=== PATIENT | male | born 1970 | race Hispanic/Latino ===

== ENCOUNTER → 2020-03-20 | Outpatient (CLI) | payer OTHER | END | disposition home or self-care (01) | LOC: OIH 10:17 | PROVIDERS: ATTEND Internal Medicine Cardiovascular Disease | DX: Z13.6 Encounter for screening for cardiovascular disorders (principal) | CPT/HCPCS: 75571 ==

== ENCOUNTER → 2020-04-27 | Outpatient (CLI) | payer BC | END | disposition home or self-care (01) | LOC: SHCH 09:53 | PROVIDERS: ATTEND Internal Medicine Cardiovascular Disease | DX: I10 Essential (primary) hypertension (principal) ==

== ENCOUNTER → 2023-02-21 | Outpatient (CLI) | payer OTHER | END | disposition home or self-care (01) | LOC: RAH 12:24 | PROVIDERS: ATTEND Internal Medicine Cardiovascular Disease | DX: Z13.6 Encounter for screening for cardiovascular disorders (principal); R93.1 Abnormal findings on diagnostic imaging of heart and coronary circulation | CPT/HCPCS: 75571 ==

== ENCOUNTER → 2023-02-26 | Outpatient (CLI) | payer BC | END | disposition home or self-care (01) | LOC: SHCH 13:57 | PROVIDERS: ATTEND Internal Medicine Cardiovascular Disease | DX: I10 Essential (primary) hypertension (principal); R09.89 Other specified symptoms and signs involving the circulatory and respiratory systems; E11.9 Type 2 diabetes mellitus without complications; E78.5 Hyperlipidemia, unspecified | CPT/HCPCS: 93306 ==

== ENCOUNTER → 2023-03-11 | Outpatient (CLI) | payer BC | END | disposition home or self-care (01) | LOC: SHCH 13:53 | PROVIDERS: ATTEND Internal Medicine Cardiovascular Disease | DX: I65.23 Occlusion and stenosis of bilateral carotid arteries (principal); I10 Essential (primary) hypertension; R09.89 Other specified symptoms and signs involving the circulatory and respiratory systems | CPT/HCPCS: 93880 ==

== ENCOUNTER → 2023-05-27 | Outpatient (CLI) | payer BC ==
[2023-05-27 13:03] LABS: ALBUMIN 3.8 g/dL (3.5-5.0); CREATININE 1.1 mg/dL (0.5-1.5); POTASSIUM 3.8 mmol/L (3.5-5.1); TOTAL PROTEIN, SERUM 7.5 g/dL (6.0-8.3)
== END | disposition home or self-care (01) ==
LOC: LAB 08:07
PROVIDERS: ATTEND Internal Medicine Cardiovascular Disease
DX: I10 Essential (primary) hypertension (principal)
CPT/HCPCS: 36415; 80053

== ENCOUNTER → 2023-05-30 | Outpatient (CLI) | payer BC ==
[~2023-05-30] MED LIST: IOHEXOL 350 MG/ML 100ML INFUS..BTL IV ONE; METOPROLOL TARTRATE 1 MG/ML 5ML VIAL IV ONE
== END | disposition home or self-care (01) ==
LOC: RAH 08:42
PROVIDERS: ATTEND Internal Medicine Cardiovascular Disease
DX: R07.89 Other chest pain (principal)
CPT/HCPCS: 75574; J3490; Q9967

== ENCOUNTER 2023-07-18 06:30 | Day surgery (SDC) | payer BC ==
[2023-07-16 11:30] LABS: BASOPHILS # (AUTO) 0.07 K/uL (0.00-0.20); BASOPHILS % (AUTO) 0.9 % (0.0-5.0); EOSINOPHILS # (AUTO) 0.64 K/uL (0.00-0.70); EOSINOPHILS % (AUTO) 8.2 % (0.0-8.0); HEMATOCRIT 45.1 % (42-54); IMMATURE GRANULOCYTE ABSOLUTE 0.01 K/uL (0-1); LYMPHOCYTES # (AUTO) 2.1 K/uL (1.0-4.8); LYMPHOCYTES % (AUTO) 26.2 % (21.0-51.0); MEAN CORPUSCULAR HEMOGLOBIN 30.8 pg (27.0-33.0); MEAN CORPUSCULAR HGB CONC 33.9 g/dL (32.0-36.0); MEAN CORPUSCULAR VOLUME 90.9 fL (79-99); MONOCYTES # (AUTO) 0.6 K/uL (0.1-1.0); NEUTROPHILS # (AUTO) 4.4 K/uL (1.8-7.7); NEUTROPHILS % (AUTO) 56.6 % (40.0-77.0); PLATELET COUNT (AUTO) 233 K/uL (130-400); RED BLOOD CELL COUNT(AUTO) 4.96 MIL/uL (4.50-6.20); RED CELL DISTRIBUTION WIDTH 12.5 % (11.0-15.5); WHITE BLOOD COUNT (AUTO) 7.9 K/uL (4.8-10.8)
[2023-07-16 11:35] LABS: POTASSIUM 4.4 mmol/L (3.5-5.1)
[2023-07-16 11:40] VITALS: BP 146/80; PULSE 78; RESP 18
[2023-07-16 11:48] LABS: INR 0.94 (0.85-1.15); PROTHROMBIN TIME 10.9 SEC (9.6-11.6)
[2023-07-16 11:54] LABS: APPEARANCE,URINE CLEAR (CLEAR); BILIRUBIN,URINE NEGATIVE (NEGATIVE); COLOR,URINE LIGHT-YELLOW (YELLOW); GLUCOSE, URINE (UA) >=1000 mg/dL (NEGATIVE); KETONES,URINE 5 mg/dL (NEGATIVE); LEUKOCYTE ESTERASE ,URINE 250 Leu/uL (NEGATIVE); NITRATE,URINE NEGATIVE (NEGATIVE); OCCULT BLOOD,URINE NEGATIVE (NEGATIVE); PROTEIN,URINE NEGATIVE (NEGATIVE); UROBILINOGEN,URINE 0.2 mg/dL (0.2-1.0)
[2023-07-16 11:57] LABS: ADD UA MICROSCOPIC YES
[2023-07-16 12:04] LABS: BACTERIA,URINE RARE /HPF (None Seen); MUCUS,URINE RARE LPF (None Seen); SQUAMOUS EPITHELIAL CELL,UR FEW /HPF (0-2)
[~2023-07-18] VITALS: Ht 177.8 cm; Wt 86.5 kg
[2023-07-18] VITALS (12 sets, daily range): BP systolic 100–119; BP diastolic 62–77; PULSE 72–88; RESP 12–24
[~2023-07-18 06:30] MED LIST changes: +DAPA10TA PO; +FENO160T16 PO; +FISH1CAP27 PO; +INSLAN SQ; -IOHEXOL 350 MG/ML 100ML INFUS..BTL IV ONE; +METF-446 PO; +METO-408 PO; -METOPROLOL TARTRATE 1 MG/ML 5ML VIAL IV ONE; +ROSU40TA21 PO; +SEMA1PEN3 SQ; +VALS160T29 PO
[2023-07-18] MEDS ORDERED: 0.9%NACL 1000ML 1,000 ML IV ONE (07:35)
[2023-07-18] MEDS ORDERED: AEC81 PO (08:05)
[2023-07-18] MEDS ORDERED: HEPARIN 10,000 UNIT/10ML (1,000 UNIT/ML) VIAL ONE (11:36)
[2023-07-18] MEDS ORDERED: NITROGLYCERIN 50MG VIAL ONE (11:36)
[2023-07-18] MEDS ORDERED: SODIUM BICARB 50MEQ 50ML VIAL 50 ML ONE (11:36)
[2023-07-18] MEDS ORDERED: IOHEXOL 350 MG/ML 100ML INFUS..BTL IV ONE (11:36)
[2023-07-18] MEDS ORDERED: LIDOCAINE HCL 400MG/20ML VIAL ONE (11:36)
[2023-07-18] MEDS ORDERED: NICARDIPINE 25MG INJ IV ONE (11:37)
[2023-07-18] MEDS ORDERED: MEPERIDINE-PF 25 MG/ML SYG ONE ×4 (12:10→12:49)
[2023-07-18] MEDS ORDERED: MIDAZOLAM HCL 1 MG/ML 2ML VIAL ONE ×4 (12:10→12:49)
[2023-07-18] MEDS ORDERED: 0.9%NACL 1000ML 1,000 ML IV SCH (13:30)
[2023-07-18] MEDS ORDERED: DEXTROSE 50%-WATER 50 ML DISP.SYRIN IV PRN (13:30)
[2023-07-18] MEDS ORDERED: GLUCAGON 1MG KIT 1 MG ML IM PRN (13:30)
[2023-07-18] MEDS ORDERED: INSULIN HUMULIN R 100 UNIT/ML 3ML SQ SCH (16:30)
== END 2023-07-18 18:05 | disposition home or self-care (01) ==
LOC: DAH 06:30
PROVIDERS: ATTEND Internal Medicine Cardiovascular Disease
DX: I25.119 Atherosclerotic heart disease of native coronary artery with unspecified angina pectoris (principal); I10 Essential (primary) hypertension; E11.9 Type 2 diabetes mellitus without complications; E78.5 Hyperlipidemia, unspecified; Z79.01 Long term (current) use of anticoagulants; Z79.899 Other long term (current) drug therapy; Z79.82 Long term (current) use of aspirin; Z79.4 Long term (current) use of insulin; Z98.890 Other specified postprocedural states; Z82.49 Family history of ischemic heart disease and other diseases of the circulatory system
CPT/HCPCS: 80048; 83880; 85025; 85610; 85730; 87088; 81001; 36415; 71045; 93005; 93458; 82948 ×2; C1769; C1894 ×2; A4649; J3490 ×4; J7030; J1644 ×2; J2250 ×3; J2175 ×3; Q9967; A4215; A4222; A4221; A4663; A4216; A4606; Q9965; A4223 ×3; 99156; 99157

== ENCOUNTER → 2023-08-18 | Outpatient (CLI) | payer BC ==
[~2023-08-18] MED LIST changes: +AEC81 PO; +FURO20TA6 PO; +GABA300C PO; -METO-408 PO; +METO25 PO; -VALS160T29 PO
[2023-08-18 12:23] LABS: BASOPHILS # (AUTO) 0.07 K/uL (0.00-0.20); BASOPHILS % (AUTO) 0.6 % (0.0-5.0); EOSINOPHILS # (AUTO) 0.52 K/uL (0.00-0.70); EOSINOPHILS % (AUTO) 4.7 % (0.0-8.0); HEMATOCRIT 36.3 % (42-54); IMMATURE GRANULOCYTE ABSOLUTE 0.05 K/uL (0-1); LYMPHOCYTES # (AUTO) 2.1 K/uL (1.0-4.8); LYMPHOCYTES % (AUTO) 18.8 % (21.0-51.0); MEAN CORPUSCULAR HEMOGLOBIN 30.7 pg (27.0-33.0); MEAN CORPUSCULAR HGB CONC 32.8 g/dL (32.0-36.0); MEAN CORPUSCULAR VOLUME 93.8 fL (79-99); MONOCYTES # (AUTO) 0.9 K/uL (0.1-1.0); NEUTROPHILS # (AUTO) 7.5 K/uL (1.8-7.7); NEUTROPHILS % (AUTO) 67.5 % (40.0-77.0); PLATELET COUNT (AUTO) 442 K/uL (130-400); RED BLOOD CELL COUNT(AUTO) 3.87 MIL/uL (4.50-6.20); RED CELL DISTRIBUTION WIDTH 13.5 % (11.0-15.5); WHITE BLOOD COUNT (AUTO) 11.1 K/uL (4.8-10.8)
[2023-08-18 12:42] LABS: ALBUMIN 3.2 g/dL (3.5-5.0); BILIRUBIN,TOTAL 0.4 mg/dL (0.2-1.0); CREATININE 1.2 mg/dL (0.5-1.5); POTASSIUM 4.4 mmol/L (3.5-5.1)
== END | disposition home or self-care (01) ==
LOC: LAB 09:37
PROVIDERS: ATTEND Internal Medicine Cardiovascular Disease
DX: I10 Essential (primary) hypertension (principal)
CPT/HCPCS: 36415; 80053; 85025

== ENCOUNTER 2023-09-08 14:00 | Observation (INO) | payer BC ==
[~2023-09-08] VITALS: Ht 177.8 cm; Wt 82.8 kg
[2023-09-08 11:29] LABS: BASOPHILS # (AUTO) 0.07 K/uL (0.00-0.20); BASOPHILS % (AUTO) 0.8 % (0.0-5.0); EOSINOPHILS # (AUTO) 0.52 K/uL (0.00-0.70); EOSINOPHILS % (AUTO) 5.9 % (0.0-8.0); HEMATOCRIT 42.9 % (42-54); IMMATURE GRANULOCYTE ABSOLUTE 0.01 K/uL (0-1); LYMPHOCYTES # (AUTO) 2.2 K/uL (1.0-4.8); LYMPHOCYTES % (AUTO) 25.2 % (21.0-51.0); MEAN CORPUSCULAR HEMOGLOBIN 29.4 pg (27.0-33.0); MEAN CORPUSCULAR HGB CONC 32.6 g/dL (32.0-36.0); MEAN CORPUSCULAR VOLUME 89.9 fL (79-99); MONOCYTES # (AUTO) 0.6 K/uL (0.1-1.0); MONOCYTES % (AUTO) 7.2 % (3.0-13.0); NEUTROPHILS # (AUTO) 5.4 K/uL (1.8-7.7); NEUTROPHILS % (AUTO) 60.8 % (40.0-77.0); PLATELET COUNT (AUTO) 277 K/uL (130-400); RED BLOOD CELL COUNT(AUTO) 4.77 MIL/uL (4.50-6.20); RED CELL DISTRIBUTION WIDTH 12.7 % (11.0-15.5); WHITE BLOOD COUNT (AUTO) 8.9 K/uL (4.8-10.8)
[2023-09-08 11:39] LABS: CREATININE 1.2 mg/dL (0.5-1.5); POTASSIUM 4.1 mmol/L (3.5-5.1)
[~2023-09-08 14:00] MED LIST changes: +FURO-152 PO; -GABA300C PO
[2023-09-10 17:29] VITALS: BP 118/61; PULSE 84; RESP 18
[2023-09-11] VITALS (27 sets, daily range): BP systolic 103–135; BP diastolic 61–83; PULSE 73–103; RESP 15–18; O2SAT 98–99
[2023-09-11] MEDS ORDERED: CEFAZOLIN SODIUM 2 GM VIAL ONE (06:20)
[2023-09-11] MEDS ORDERED: 0.9%NACL 1000ML 1,000 ML IV ONE (06:20)
[2023-09-11] MEDS ORDERED: LIDOCAINE 2%-EPI PF 30 ML+BUPIVACAINE/PF 0.25% 30ML /60ML SYR IJ SCH ×2 (06:30)
[2023-09-11] MEDS ORDERED: FAMOTIDINE 20MG VIAL IV ONE (07:00)
[2023-09-11] MEDS ORDERED: PROPOFOL 1000 MG/100 ML 100 ML IV ONE (07:09)
[2023-09-11] MEDS ORDERED: DEXAMETHASONE SOD PHOSPHATE 4 MG/ML 1ML VIAL ONE (07:10)
[2023-09-11] MEDS ORDERED: CEFAZOLIN SODIUM 1 GM VIAL ONE (07:13)
[2023-09-11] MEDS ORDERED: THROMBIN-JMI 20000 UNIT KIT TP ONE (07:14)
[2023-09-11] MEDS ORDERED: MORPHINE PF 100MG/10ML AMP IV ONE (07:14)
[2023-09-11] MEDS ORDERED: CEFAZOLIN SODIUM 1 GM VIAL IRRIG ONE (08:11)
[2023-09-11] MEDS ORDERED: CEFAZOLIN SODIUM 2 GM VIAL IVPB ONE (08:11)
[2023-09-11] MEDS ORDERED: THROMBIN 20000 UNITS/VIAL POWDER TP ONE (08:11)
[2023-09-11] MEDS ORDERED: MORPHINE 10MG VIAL IM ONE (08:11)
[2023-09-11] MEDS ORDERED: ROCURONIUM 10MG/1ML SYR 10 MG/ML ML IV ONE (10:04)
[2023-09-11] MEDS ORDERED: NEOSTIGMINE 5MG/5ML SYR IV ONE (10:04)
[2023-09-11] MEDS ORDERED: PROPOFOL 10 MG/ML 20ML VIAL IV ONE (10:04)
[2023-09-11] MEDS ORDERED: SUCCINYLCHOLINE CHLORIDE 20 MG/ML 10 ML VIAL IVP ONE (10:04)
[2023-09-11] MEDS ORDERED: PHENYLEPHRINE HCL 10 MG/ML 1ML VIAL IV ONE (10:04)
[2023-09-11] MEDS ORDERED: LIDOCAINE PF 100MG/5ML (2%) SYRINGE 5ML IVP ONE (10:04)
[2023-09-11] MEDS ORDERED: MIDAZOLAM HCL 1 MG/ML 2ML VIAL IVPB ONE (10:04)
[2023-09-11] MEDS ORDERED: FENTANYL CITRATE PF 50 MCG/1 ML 2ML VIAL IJ ONE (10:04)
[2023-09-11] MEDS ORDERED: ESMOLOL HCL 10 MG/ML 10 ML VIAL IVP ONE (10:04)
[2023-09-11] MEDS ORDERED: GLYCOPYRROLATE 1 MG/5 ML SYRINGE IV ONE (10:04)
[2023-09-11] MEDS ORDERED: ONDANSETRON 4MG INJ IVP ONE (10:04)
[2023-09-11] MEDS ORDERED: 0.9%NACL 10ML VIAL IVP PRN (11:00)
[2023-09-11] MEDS ORDERED: MORPHINE 2 MG SYG IVP PRN (11:00)
[2023-09-11] MEDS ORDERED: PROMETHAZINE HCL 25 MG/ML 1ML AMPULE IM PRN (11:00)
[2023-09-11] MEDS ORDERED: CEFAZOLIN SODIUM 1 GM VIAL IVPB SCH (11:00)
[2023-09-11] MEDS ORDERED: HYDROCODONE/ACETAMINOPHEN 5/325 MG TAB PO PRN (11:00)
[2023-09-11] MEDS: DEXAMETHASONE SOD PHOSPHATE 4 MG/ML 1ML VIAL IVP SCH ×2 (12:23→17:03)
[2023-09-11] MEDS: LACTATED RINGERS 1000ML 1,000 ML IV SCH (12:23)
[2023-09-11] MEDS ORDERED: CEFAZOLIN SODIUM 1 GM VIAL IVPB ONE (15:45)
[2023-09-11] MEDS: INSULIN HUMULIN R 100 UNIT/ML 3ML SQ SCH ×2 (17:01→21:38)
[2023-09-11] MEDS: METFORMIN HCL 500 MG TABLET PO SCH (17:03)
[2023-09-11] MEDS ORDERED: NON-FORMULARY MEDICATION 1 EACH (Metformin HCl 1,000 MG) PO SCH (21:00)
[2023-09-11] MEDS ORDERED: FENOFIBRATE NANOCRYSTALLIZED 145 MG TAB PO SCH (21:00)
[2023-09-11] MEDS: METOPROLOL TARTRATE 25 MG TAB PO SCH (21:36)
[2023-09-12] VITALS: BP 116/70; PULSE 87; RESP 17
[2023-09-12] MEDS: DEXAMETHASONE SOD PHOSPHATE 4 MG/ML 1ML VIAL IVP SCH ×2 (02:12→05:56)
[2023-09-12] MEDS: LACTATED RINGERS 1000ML 1,000 ML IV SCH (02:14)
[2023-09-12 04:00] VITALS: BP 116/67; PULSE 82; RESP 17
[2023-09-12] MEDS: INSULIN HUMULIN R 100 UNIT/ML 3ML SQ SCH (06:10)
[2023-09-12 08:00] VITALS: BP 129/74; PULSE 84; RESP 16; O2SAT 99
[2023-09-12] MEDS: METOPROLOL TARTRATE 25 MG TAB PO SCH (08:32)
[2023-09-12] MEDS: METFORMIN HCL 500 MG TABLET PO SCH (08:32)
[2023-09-12] MEDS ORDERED: NON-FORMULARY MEDICATION 1 EACH (Fenofibrate 160 MG) PO SCH (09:00)
[2023-09-12] MEDS ORDERED: INSULIN GLARGINE 100 UNITS/ML 10 ML VIAL SQ SCH (09:00)
[2023-09-12] MEDS ORDERED: Dapagliflozin Propanediol (Farxiga) 10 MG PO SCH (09:00)
[2023-09-12] MEDS ORDERED: Rosuvastatin Calcium 40 MG PO SCH (09:00)
[2023-09-12] MEDS ORDERED: ASPIRIN 81 MG EC TAB PO SCH (09:00)
[2023-09-12] MEDS ORDERED: FISH OIL 1000 MG/CAP PO SCH (09:00)
[2023-09-13] MEDS ORDERED: FUROSEMIDE 20 MG TABLET PO SCH (09:00)
[2023-09-18] MEDS ORDERED: Semaglutide (Ozempic) 1 MG SQ SCH (09:00)
== END 2023-09-12 10:05 | disposition home or self-care (01) ==
LOC: DAHIP 09-11 06:00 → 4AH 09-11 11:45
PROVIDERS: ADMIT Neurological Surgery; ATTEND Neurological Surgery
DX: M51.27 Other intervertebral disc displacement, lumbosacral region (principal); I10 Essential (primary) hypertension; E11.9 Type 2 diabetes mellitus without complications; M51.16 Intervertebral disc disorders with radiculopathy, lumbar region; M25.78 Osteophyte, vertebrae; Z95.1 Presence of aortocoronary bypass graft; Z79.84 Long term (current) use of oral hypoglycemic drugs; Z79.82 Long term (current) use of aspirin; Z79.899 Other long term (current) drug therapy; Z98.890 Other specified postprocedural states
CPT/HCPCS: 80048; 85025; 36415; 63047; 96376 ×2; 96372 ×2; 96365; 96375; 82948 ×5; 72020; A6260; G0378 ×23; G0379; A4663; J7030 ×2; J7120; A4344; J3490 ×5; J3010; J0690 ×5; J2710; J0330; J0665; J2001; J2250; J2704 ×2; J2274; J2405; J1100 ×5; J2371; J2270; A6219; A4930; A4215; A4223; A4222; A4221; A4600; A4510; J1815

== ENCOUNTER → 2024-03-01 | Outpatient (CLI) | payer BC ==
[~2024-03-01] MED LIST changes: -FURO20TA6 PO
== END | disposition home or self-care (01) ==
LOC: SHCH 13:27
PROVIDERS: ATTEND Internal Medicine Cardiovascular Disease
DX: I11.9 Hypertensive heart disease without heart failure (principal); E11.9 Type 2 diabetes mellitus without complications; E78.5 Hyperlipidemia, unspecified; R06.00 Dyspnea, unspecified; Z95.1 Presence of aortocoronary bypass graft
CPT/HCPCS: 93306

== ENCOUNTER → 2024-08-06 | Outpatient (CLI) | payer OTHER ==
[~2024-08-06] MED LIST changes: -ROSU40TA21 PO; +ROSU40TA88 PO
== END | disposition home or self-care (01) ==
LOC: CANPRECLI → RAH 12:48
PROVIDERS: ATTEND Internal Medicine
DX: I73.00 Raynaud's syndrome without gangrene (principal); K74.3 Primary biliary cirrhosis
CPT/HCPCS: 93930

== ENCOUNTER 2025-04-21 16:29 | Emergency (ER) | payer BC, OTHER ==
[~2025-04-21] VITALS: Ht 177.8 cm; Wt 86.2 kg
--- NOTE | 2025-04-21 17:19 | EKG ---
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
[2025-04-21 17:40] LABS: BASOPHILS # (AUTO) 0.05 K/uL (0.00-0.20); BASOPHILS % (AUTO) 0.6 % (0.0-5.0); EOSINOPHILS # (AUTO) 0.21 K/uL (0.00-0.70); EOSINOPHILS % (AUTO) 2.5 % (0.0-8.0); HEMATOCRIT 35.7 % (42-54); IMMATURE GRANULOCYTE ABSOLUTE 0.04 K/uL (0-1); LYMPHOCYTES # (AUTO) 1.5 K/uL (1.0-4.8); LYMPHOCYTES % (AUTO) 17.7 % (21.0-51.0); MEAN CORPUSCULAR HEMOGLOBIN 30.6 pg (27.0-33.0); MEAN CORPUSCULAR HGB CONC 32.8 g/dL (32.0-36.0); MEAN CORPUSCULAR VOLUME 93.5 fL (79-99); MONOCYTES # (AUTO) 1.3 K/uL (0.1-1.0); MONOCYTES % (AUTO) 15.4 % (3.0-13.0); NEUTROPHILS # (AUTO) 5.3 K/uL (1.8-7.7); NEUTROPHILS % (AUTO) 63.3 % (40.0-77.0); PLATELET COUNT (AUTO) 354 K/uL (130-400); RED BLOOD CELL COUNT(AUTO) 3.82 MIL/uL (4.50-6.20); RED CELL DISTRIBUTION WIDTH 13.6 % (11.0-15.5); WHITE BLOOD COUNT (AUTO) 8.4 K/uL (4.8-10.8)
--- NOTE | 2025-04-21 17:45 | HMCIMG ---
CHEST 1VW HISTORY: Shortness of breath COMPARISON: 08/09/2023 FINDINGS: A frontal projection of the chest was obtained. Prominent interstitial markings are seen with possible superimposed infiltrates. Poststernotomy changes are seen. The heart is enlarged. Degenerative changes of the thoracolumbar spine are present. All the lines and tubes are again seen in place. No evidence of aortic calcification is seen. IMPRESSION: 1. Prominent interstitial markings are seen with possible superimposed infiltrates.
[2025-04-21 17:51] LABS: POTASSIUM 4.1 mmol/L (3.5-5.1)
[2025-04-21 17:57] LABS: ALBUMIN 3.6 g/dL (3.5-5.0); BILIRUBIN,DIRECT 0.1 mg/dL (0.0-0.3); BILIRUBIN,TOTAL 0.4 mg/dL (0.2-1.0); TOTAL PROTEIN, SERUM 6.9 g/dL (6.0-8.3)
[2025-04-21 18:06] LABS: B-TYPE NATRIURETIC PEPTIDE 199 pg/mL (0-100)
[2025-04-21] MEDS: furoSEMIDE 40MG VIAL IV ONE (18:44)
[2025-04-21] MEDS ORDERED: FURO20TA6 PO (18:48)
--- NOTE | 2025-04-21 18:48 | ERN ---
ED Note History of Present Illness Stated Complaint: SOB Chief Complaint: Lower Extremity Pain/Injury Time Seen by MD: 16:53 Dictation: 55-year-old male presenting to the emergency department with lower extremity swelling over the past day and some shortness a breath. 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 Reports that the symptoms have improved. Allergies: Coded Allergies: No Known Drug Allergies (Unverified Allergy, Unknown, 07/16/23) Home Meds Active Scripts Metoprolol Tartrate (Lopressor) 25 Mg Tab, 25 MG PO BID, #60 TAB Prov:IVETH BUTTERFIELD MD 08/09/23 Insulin Glargine,Hum.rec.anlog (Lantus) 100 Unit/Ml Inj, 65 UNITS SQ AM, #10 ML Prov:IVETH BUTTERFIELD MD 08/09/23 Semaglutide (Ozempic) 1 Mg/0.75 Ml (4 Mg/3 Ml) Pen.injctr, 1 MG SQ weekly, #1 Prov:IVETH BUTTERFIELD MD 08/09/23 Sparkman-3 Fatty Acids/Fish Oil (Sparkman 3 1,000 mg Softgel) 300 Mg-1,000 Mg Capsule, 2 EACH PO AM, #1 CAP Prov:IVETH BUTTERFIELD MD 08/09/23 Reported Medications Furosemide (Lasix) 20 Mg Tablet, 20 MG PO QODAY, TAB 09/08/23 Aspirin (ASPIRIN 81 MG ECTAB) 81 Mg Ectab, 81 MG PO DAILY, TAB.EC 07/18/23 Rosuvastatin Calcium (Rosuvastatin Calcium) 40 Mg Tablet, 40 MG PO AM, TAB 07/16/23 Fenofibrate (Fenofibrate) 160 Mg Tablet, 160 MG PO AM, TAB 07/16/23 Dapagliflozin Propanediol (Farxiga) 10 Mg Tablet, 10 MG PO AM, TAB 07/16/23 Metformin HCl (Metformin HCl) 1,000 Mg Tablet, 1000 MG PO BID, TAB 07/16/23 Past Medical History Past Medical History: CAD, Diabetes-Type II, High Cholesterol, Hypertension, Other Additional Past Medical Hx: SCLERODERMA Surgical History: CABG, Other Surgical History Other: LEFT SHOULDER, BACK, LEFT KNEE X 2, BILATERAL KNEE Review of System Dictation Constitutional: Negative for fever,chills, and weight loss Eyes: Negative for injury, pain,redness, and discharge ENT: Negative for injury,pain or swelling Cardiovascular: Per HPI Respiratory: Per HPI Abdomen/GI: Negative for abdominal pain, nausea, vomiting, diarrhea, and constipation Back: Negative for injury and pain : Negative for injury, bleeding and discharge MS/Extremity: Negative for injury and deformity Skin: Negative for rash, and discoloration Neuro: Negative for headache, weakness, numbness, tingling, and seizure Psych: Negative for suicide ideation, homicidal ideation, and hallucinations Initial Vital Sign VS Vital Signs Date Time Temp Pulse Resp B/P (MAP) Pulse Ox O2 Delivery O2 Flow Rate FiO2 04/21/25 16:35 98.1 71 20 113/74 99 Room Air 0 04/21/25 17:15 21 Physical Exam Dictation General: awake, alert, NAD Head/Face: Normocephalic, atraumatic Eyes: PERRL, EOMI, vision at baseline ENT: oral cavity clear, TMs clear, no signs of infection Neck: Trachea midline, supple, no nuchal rigidity Cardiovascular: RRR, normal S1/S2, No MRGs, no JVD, mild lower extremity edema bilaterally Respiratory: CTAB, no respiratory distress, No rales or wheezes Abdomen: Soft, non-tender, non-distended, normal bowel sounds, no guarding or rebound. Skin: Warm, dry, normal turgor, no rash MS/Extremity: Pulses equal, no cyanosis, neurovascular intact, FROM Neuro: COAx4, GCS 15, strength 5/5, CN 2-12 intact, normal cerebellar exam, normal gait, Psych: Normal behavior, mood, and affect normal Results (Laboratory/Radiology) Laboratory/Radiology Laboratory Tests Test 04/21/25 17:16 White Blood Count 8.4 K/uL (4.8-10.8) Red Blood Count 3.82 MIL/uL (4.50-6.20) L Hemoglobin 11.7 g/dL (14.0-18.0) L Hematocrit 35.7 % (42-54) L Mean Corpuscular Volume 93.5 fL (79-99) Mean Corpuscular Hemoglobin 30.6 pg (27.0-33.0) Mean Corpuscular Hemoglobin Concent 32.8 g/dL (32.0-36.0) Red Cell Distribution Width 13.6 % (11.0-15.5) Platelet Count 354 K/uL (130-400) Mean Platelet Volume 10.3 fL (7.5-10.5) Immature Granulocyte % (Auto) 0.5 % (0-1) Neutrophils (%) (Auto) 63.3 % (40.0-77.0) Lymphocytes (%) (Auto) 17.7 % (21.0-51.0) L Monocytes (%) (Auto) 15.4 % (3.0-13.0) H Eosinophils (%) (Auto) 2.5 % (0.0-8.0) Basophils (%) (Auto) 0.6 % (0.0-5.0) Neutrophils # (Auto) 5.3 K/uL (1.8-7.7) Lymphocytes # (Auto) 1.5 K/uL (1.0-4.8) Monocytes # (Auto) 1.3 K/uL (0.1-1.0) H Eosinophils # (Auto) 0.21 K/uL (0.00-0.70) Basophils # (Auto) 0.05 K/uL (0.00-0.20) Absolute Immature Granulocyte (auto 0.04 K/uL (0-1) Nucleated Red Blood Cells 0.0 % (0.0-0.19) White Cell Morphology Comment See comments Sodium Level 143 mmol/L (136-145) Potassium Level 4.1 mmol/L (3.5-5.1) Chloride Level 108 mmol/L (101-111) Carbon Dioxide Level 27 mmol/L (21-32) Blood Urea Nitrogen 19 mg/dL (7-18) H Creatinine 1.0 mg/dL (0.5-1.3) Glomerular Filtration Rate Calc 89 mL/min (>90) Random Glucose 100 mg/dL (70-105) Total Calcium 8.6 mg/dL (8.5-10.1) Total Bilirubin 0.4 mg/dL (0.2-1.0) Direct Bilirubin 0.1 mg/dL (0.0-0.3) Aspartate Amino Transf (AST/SGOT) 29 U/L (10-37) Alanine Aminotransferase (ALT/SGPT) 37 U/L (12-78) Alkaline Phosphatase 34 U/L (50-136) L Troponin I High Sensitivity 66 ng/L (4-75) B-Type Natriuretic Peptide 199 pg/mL (0-100) H Total Protein 6.9 g/dL (6.0-8.3) Albumin 3.6 g/dL (3.5-5.0) Labs Reviewed?: Yes EKG Comment: Heart rate 71 normal sinus rhythm normal intervals no STEMI or STEMI equivalent ED Course ED Course Orders Procedure Category Date Status Time 12 Lead Ekg Tracing- EKG 04/21/25 Complete Technical 16:53 B-Type Natriuretic LAB 04/21/25 Complete Peptide 16:53 Basic Metabolic Panel LAB 04/21/25 Complete 16:53 Cbc With Differential LAB 04/21/25 Complete 16:53 Hepatic Function Panel LAB 04/21/25 Complete 16:53 Troponin I High LAB 04/21/25 Complete Sensitivity 16:53 Chest 1vw RAD 04/21/25 Resulted 16:53 Furosemide 40mg Vial PHA 04/21/25 Complete (Lasix 40mg Vial) 18:30 Current Medications Medications (Trade) Dose Ordered Sig/Kaela Route PRN Reason Start Time Stop Time Status Last Admin Dose Admin Furosemide (LASix 40MG VIAL) 40 mg ONCE ONCE IV 04/21/25 18:30 04/21/25 18:31 DC Vital Signs Date Time Temp Pulse Resp B/P (MAP) Pulse Ox O2 Delivery O2 Flow Rate FiO2 04/21/25 17:15 77 18 117/69 97 Room Air* 0 21 04/21/25 16:35 98.1 71 20 113/74 99 Room Air 0 Medical Decision Making MDM MDM: Differential diagnosis: Rationale: Tests considered and ordered secondary to shared decision making include: Previous outside records reviewed: Old ER visits. Risk of complication and/or morbidity or mortality of patient management: None Medications-Per medication reconciliation Need for hospitalization: Patient does not meet criteria for hospitalization. Need for emergency major/minor surgery: No There are no social concerns with this patient. Prescription drug management Prescriptions will include symptomatic care Patient's prior external medical records from other ER visits were reviewed by me as indicated. Prior testing and results from previous visits were reviewed. Prior tests were taken into account with medical decision making and resource utilization, independent historian/historians were used to obtain complete medical history. No clinical concern for pulmonary emboli patient is not tachycardic normal oxygen while here, no hemoptysis or recent surgeries. I independently interpreted the test that were performed, results were reviewed by me and considered findings on radiology if ordered. Medical management and examination interpretation discussions were had by me with other qualified healthcare professionals as indicated for the patient's care. 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 Patient given prescription and advised to return if he changes mind about admission or if worse in any way and agrees with current recommendations. DX & DISP Disposition: Discharge Departure Impression: Primary Impression: Peripheral edema Condition: Stable Scripts Furosemide (Lasix 20Mg Tab) 20 Mg Tablet 1 TAB PO DAILY for 5 Days, #5 TAB 0 Refills Prov: JEFF GATES MD 04/21/25 Referrals: SHANAE CABELLO MD (PCP) JEFF GATES MD Apr 21, 2025 18:48
[2025-04-21 18:50] VITALS: BP 116/62; PULSE 72; RESP 18; TEMP 97.9; O2SAT 99
== END 2025-04-21 19:07 | disposition home or self-care (01) ==
LOC: EDH 16:29
DX: R60.0 Localized edema (principal); E11.9 Type 2 diabetes mellitus without complications; E78.00 Pure hypercholesterolemia, unspecified; I10 Essential (primary) hypertension; I25.10 Atherosclerotic heart disease of native coronary artery without angina pectoris; Z79.82 Long term (current) use of aspirin; Z79.84 Long term (current) use of oral hypoglycemic drugs; Z79.85 Long-term (current) use of injectable non-insulin antidiabetic drugs; Z79.899 Other long term (current) drug therapy; Z95.1 Presence of aortocoronary bypass graft
CPT/HCPCS: 99284; 96374; 71045; 80076; 84484; 80048; 83880; 85025; 36415; 93005; J1938

== ENCOUNTER → 2025-04-27 | Outpatient (CLI) | payer BC ==
[~2025-04-27] MED LIST changes: +FURO20TA6 PO
--- NOTE | 2025-04-27 12:20 | HMCIMG ---
CHEST 2VWS HISTORY: Shortness of breath COMPARISON: None FINDINGS: Frontal and lateral projections of the chest were obtained. Poststernotomy changes are seen. There is no acute pulmonary infiltrates or failure. The heart is not enlarged. No evidence of aortic calcification is seen. IMPRESSION: 1. No acute pulmonary infiltrates.
--- NOTE | 2025-04-27 16:17 | HMCSR ---
APPROVED REPORT EXAM: Two-dimensional and M-mode echocardiogram with Doppler and color Doppler. INDICATION ICD: Shortness of breath R06.02 2D Dimensions RVDd3.6 cmLVEF(%)55.3 (>50%)LVED Vol(simp.)86.0 mL IVSd0.9 (0.7-1.1cm)FS(%)29 %LVES Vol(simp.)40.0 mL LVDd4.5 (3.8-5.6cm)LA (2D)4.5 (1.6-4.0cm)LVEF(%, simp.)53 % PWd1.1 (0.7-1.1cm)Ao Root(2D)3.0 (2.0-3.7cm)LA ESV INDEX (BP)34.07 mL/m2 LVDs3.2 (2.5-4.0cm)LVOT diam2.1 (1.8-2.4cm) IVC diam2.1 cm M-Mode Dimensions EPSS0.5 cm LA (MM)4.7 (1.6-4.0cm) Ao Root(MM)2.7 (2.0-3.7cm) Aortic Valve AoV Vmax1.3 m/Regino Peak GR6.9 mmHgLVOT Vmax1.1 m/s AoV VTI0.3 mAo Mean GR4.0 mmHgLVOT VTI0.24 m JUSTIN (VMAX)2.94 cm2AVA (VTI) 3.0 cm2 Mitral Valve MV E Vmax94.7 cm/sDECEL Asyl052 ms MV A Vmax51.4 cm/sP 1/2 T76 ms E/A ratio1.8MVA (PHT)2.9 cm2 TDI E/E' Medial8.1E/E' Lateral6.1 Medial E' Peak V11.71 cm/sLateral E' Peak V15.45 cm/s Pulmonary Valve PV Vmax1.2 m/sPV VTI0.26 mPV Mean GR3.0 mmHg PV Peak GR5.3 mmHgPI End Ashely. Jose Alfredo 88.0 cm/s Tricuspid Valve TR Vmax2.4 m/sRVSP20.0 mmHg TR Peak GR25.1 mmHg Left Ventricle The left ventricle is normal size. There is normal LV segmental wall motion. There is normal left vviien tricular wall thickness. LVEF is 50-55%. The left ventricular diastolic function is normal. Right Ventricle The right ventricle is normal size. The right ventricular systolic function is normal. Atria The left atrium size is normal. The right atrium size is normal. Aortic Valve The aortic valve is normal in structure. No aortic regurgitation is present. There is no aortic valvu lar stenosis. Mitral Valve The mitral valve is normal in structure. Mitral regurgitation is trace. There is no mitral valve sten osis. Tricuspid Valve The tricuspid valve is normal in structure. There is trace tricuspid valve regurgitation noted. Pulmonic Valve Pulmonic valve is not well visualized. There is trace pulmonic valvular regurgitation. Great Vessels The aortic root is normal in size. IVC is dilated and collapses >50% with inspiration. Pericardium There is no pericardial effusion. Other Information Quality : Average Conclusion The left ventricle is normal size. LVEF is 50-55% with normal LV segmental wall motion. The left ventricular diastolic function is normal. The right ventricular systolic function is normal. Both atria are normal in size. No hemodynamically significant valvular abnormalities. There is no pericardial effusion.
== END | disposition home or self-care (01) ==
LOC: RAH 09:32
PROVIDERS: ATTEND Internal Medicine
DX: I51.7 Cardiomegaly (principal); R06.02 Shortness of breath; R79.89 Other specified abnormal findings of blood chemistry; R91.8 Other nonspecific abnormal finding of lung field; Z98.890 Other specified postprocedural states
CPT/HCPCS: 71046; 93306

== ENCOUNTER → 2025-06-02 | Outpatient (CLI) | payer BC ==
[~2025-06-02] MED LIST changes: +IOHEXOL 350 MG/ML 100ML INFUS..BTL IV ONE
== END | disposition home or self-care (01) ==
LOC: RAH 08:23
PROVIDERS: ATTEND Internal Medicine Cardiovascular Disease
DX: I25.119 Atherosclerotic heart disease of native coronary artery with unspecified angina pectoris (principal)
CPT/HCPCS: 75574; Q9967